=== PATIENT | female | born 1935 | race Caucasian/White ===

== ENCOUNTER 2019-03-10 13:09 | Inpatient (IN) ==
[2019-03-10] MEDS ORDERED: Ketorolac 30 MG/ML VIAL IVP ONE (13:21)
--- NOTE | 2019-03-10 13:26 | Emergency Department Note ---
Disposition Clinical Impression: Pubic ramus fracture Qualifiers: Encounter type: initial encounter Fracture type: closed Laterality: right Qualified Code(s): S32.591A - Other specified fracture of right pubis, initial encounter for closed fracture Disposition: Admitted As Inpatient Condition: Good Time of Disposition: 16:20 Lower Extremity Injury HPI - General Chief Complaint: ED Extremity Injury, Lower Stated Complaint: fall, right hip pain Time Seen by Provider: 03/10/19 13:10 Source: EMS Mode of arrival: EMS Limitations: no limitations Nursing Notes Reviewed: Yes Vital Signs Reviewed: Yes - History of Present Illness HPI Narrative: Patient presents to the ED via EMS complaining of right hip pain after a fall. States she was in town visiting her niece and was walking on uneven ground on a hillside in her yard going to her car when she slipped and fell. She went down on her right hip. She did not strike her head or lose consciousness. She did not have any immediate pain but when she tried to get up she experienced significant pain in her right hip and was unable to bear weight. Per EMS her pain was initially 10 out of 10. She reports 5 out of 10 pain currently in only the right hip area. No numbness, tingling or weakness in her leg. She has never injured this hip in the past. She denies any other pain or other injuries from the fall. She denies any antecedent lightheadedness, dizziness, palpitations or other symptoms prior to the fall. 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 - Related Data Home Medications Medication Instructions Recorded Confirmed Albuterol Neb [Proventil Neb] 2.5 mg IH PRN PRN 03/10/19 03/10/19 Atorvastatin [Lipitor] 20 mg PO HS 03/10/19 03/10/19 Azelastine 0.1% Nasal [place] 2 spray NS QPM 03/10/19 03/10/19 [Astelin] Budesonide/Formoterol 160/4.5 2 puff IH BIDR 03/10/19 03/10/19 [Symbicort 160/4.5] Cetirizine HCl [24Hour Allergy] 10 mg PO DAILY 03/10/19 03/10/19 Cholecalciferol (Vitamin D3) 1,000 unit PO DAILY 03/10/19 03/10/19 [Vitamin D] Colestipol HCl [Colestid] 1 gm PO BID 03/10/19 03/10/19 Fluticasone Propionate Nasal 50 mcg NS QAM 03/10/19 03/10/19 [Flonase] Furosemide [Lasix] 40 mg PO DAILY 03/10/19 03/10/19 HYDROcodone/Acet 5/325 mg [[place] 1 tab PO BID PRN 03/10/19 03/10/19 5-325 mg] Lansoprazole [Prevacid] 30 mg PO DAILY 03/10/19 03/10/19 Levothyroxine [Synthroid] 50 mcg PO DAILY 03/10/19 03/10/19 Montelukast Sodium [Singulair] 10 mg PO DAILY 03/10/19 03/10/19 Potassium Chloride [Klor-Con 10] 50 meq PO DAILY 03/10/19 03/10/19 Sertraline [Zoloft] 75 mg PO DAILY 03/10/19 03/10/19 Allergies Allergy/AdvReac Type Severity Reaction Status Date / Time No Known Allergies Allergy Verified 03/10/19 17:14 Constitutional: Denies: fever, chills, weakness, weight change Eyes: Denies: eye pain, eye discharge, vision change ENT ED: Denies: ear pain, throat pain, dental pain, hearing loss, epistaxis, congestion, dysphagia Cardiovascular: Denies: chest pain, palpitations, dyspnea on exertion, edema, syncope Respiratory: Denies: cough, dyspnea, wheezes, hemoptysis, stridor Gastrointestinal: Denies: abdominal pain, nausea, vomiting, diarrhea, constipation, hematemesis, melena, hematochezia Genitourinary: Denies: dysuria, frequency, hematuria, discharge Musculoskeletal: Denies: back pain, neck pain, arthralgia, myalgia Integumentary: Denies: rash, abrasion, lesions Neurological: Denies: headache, weakness, numbness, paresthesias, confusion, abnormal gait, vertigo Psychiatric: Denies: anxiety, depression, suicidal thoughts, homicidal thoughts, auditory hallucinations, visual hallucinations Endocrine: Denies: fatigue Hematological/Lymphatic: Denies: easy bleeding, easy bruising Allergic/Immunologic: Denies: facial swelling, urticaria Past Medical History - Past Medical History Medical history: Reports: asthma, cancer, GERD, hyperlipidemia, hypertension Psychiatric history: Reports: no psych history - Social History Smoking Status: Never smoker Smokeless Tobacco Status: No Alcohol use: Reports: none Drug use: Reports: none Physical Exam - General Limitations: no limitations General appearance: alert, in no apparent distress - Head Head exam: atraumatic, normocephalic, normal inspection - Eye Eye exam: Present: normal appearance, PERRL, EOMI - Neck Neck exam: Present: normal inspection, full ROM, trachea midline - Chest Chest inspection: Present: normal inspection, symmetric chest wall rise - Respiratory Respiratory exam: Present: normal lung sounds bilaterally - Cardiovascular Cardiovascular exam: Present: regular rate, normal rhythm, normal heart sounds - Abdominal Exam Abdominal exam: Present: soft, Non-Tender. Absent: tenderness, distention, guarding, rebound, rigidity - Extremities Exam Extremities exam: Present: normal inspection, full ROM. Absent: tenderness, pedal edema - Expanded Lower Extremity Exam Hip/Pelvis exam: Present: external rotation (chronic). Absent: full ROM (limited by pain), deformity, crepitus, dislocation Upper leg exam: Present: normal inspection, full ROM Knee exam: Present: normal inspection, full ROM Lower leg exam: Present: normal inspection, full ROM Ankle exam: Present: normal inspection, full ROM Foot/toe exam: Present: normal inspection, full ROM Neurovascular/Tendon exam: Present: normal capillary refill. Absent: pulse deficit, motor deficit, sensory deficit, tendon deficit - Back Exam Back exam: Present: normal inspection - Neurological Exam Neurological exam: Present: alert, oriented X3 - Psychiatric Psychiatric exam: Present: normal affect, normal mood - Skin Skin exam: Present: warm, dry, intact, normal color Course Course Narrative: Patient presents to the ED via EMS complaining of right hip pain after mechanical fall and her niece his yard. On arrival she is afebrile, hemod ynamically stable and nontoxic in appearance. She is reporting 5 out of 10 pain in the right hip it only occurs with movement. No pain at rest. No obvious deformities to the right lower extremity. We will give medication for pain and obtain imaging. - Reevaluation(s) Reevaluation #1: X-ray shows some lumbar spine degenerative changes but no acute abnormalities in the right hip. Patient remains pain-free at rest. She was able to get up to the side of the bed on her own but when she attempted to walk with her cane she was unable to bear weight on the right leg without extreme pain. Will obtain CT of the hip for further evaluation of potential injury that may not be obvious on plain film. She declined an offer of additional pain medication. Time: 14:32 Reevaluation #2: CT results show nondisplaced superior and inferior right pubic rami fracture as well as possibly a nondisplaced right alar fracture. Discussed results with patient and the fact that while these are painful fractures they do not usually require surgery but can cause difficulty with ambulation. Given the patient lives alone and does not have 24-hour assistance available at this time she was offered admission for pain control, assistance with ambulation, PT and OT evaluation and arrangements for home health assistance as needed. She is discussing the situation with her family at this time. Time: 15:38 Reevaluation #3: Patient is willing to stay for pain control, assistance with ambulation, therapy evaluation and arrangement of home health services as needed. We have paged the hospitalist on-call and are awaiting callback at this time. Time: 15:55 Additional Reevaluation(s): I spoke to the hospitalist on-call, Dr. Maradiaga, who has accepted the patient. Vital Signs Temperature 99.7 F H 03/10/19 13:12 Pulse Rate 71 03/10/19 13:12 Respiratory Rate 18 03/10/19 13:12 Blood Pressure 108/95 03/10/19 13:12 O2 Sat by Pulse Oximetry 95 03/10/19 13:12 Temperature 99.7 F H 03/10/19 13:12 Pulse Rate 65 03/10/19 16:59 Respiratory Rate 18 03/10/19 16:59 Blood Pressure 121/85 03/10/19 16:59 O2 Sat by Pulse Oximetry 98 03/10/19 16:59 Oxygen Delivery Oxygen Delivery Room Air Extremity Injury, Lower - Differential Diagnosis Likely: sprain/strain, fracture - Medical Records Medical records reviewed: Yes I reviewed the patient's medical records. - Radiology Data Radiology results reviewed: Yes I reviewed the patient's radiology results. ITS Impressions Hip X-Ray 03/10/19 13:21 IMPRESSION: No acute osseous abnormality. D/ / Lalito Anderson MD / Lalito Anderson MD Interpreting Provider: Lalito Anderson MD Hip CT 03/10/19 14:30 IMPRESSION: 1. Acute nondisplaced fractures of the right superior and inferior pubic rami. 2. Questionable fracture of the right sacral ala which is only partially included in the field of view. D/ / Lalito Anderson MD / Lalito Anderson MD Interpreting Provider: Lalito Anderson MD
[2019-03-10] MEDS ORDERED: traMADol 50 MG TABLET PO ONE (14:56)
[2019-03-10] MEDS ORDERED: *HR* HYDROcodone/Acet 5/325 mg TABLET PO PRN ×2 (16:27→17:47)
[2019-03-10] MEDS ORDERED: Acetaminophen 325 MG TABLET PO PRN ×2 (16:27→17:47)
[2019-03-10] MEDS ORDERED: *HR* OxyCODONE Immed Rel 5 MG TABLET PO PRN (16:27)
[2019-03-10] MEDS ORDERED: Naloxone 0.4 MG/ML INJ IVP PRN ×2 (16:27→17:47)
[2019-03-10] MEDS: Azelastine 0.1% Nasal Spray 30 ML BOTTLE NS SCH (18:39)
[2019-03-10] MEDS: *HR* OxyCODONE Immed Rel 5 MG TABLET PO PRN (20:42)
[2019-03-10] MEDS: COLESTIPOL 1 GM PO SCH (20:52)
[2019-03-10] MEDS: Albuterol 2.5 MG/3 ML NEBULIZER IH PRN (22:16)
[2019-03-10] MEDS: Budesonide/Formoterol 160/4.5 1 PUFF INH IH SCH (22:16)
[2019-03-11] MEDS: Melatonin 3 MG TABLET PO SCH ×2 (00:15→20:46)
[2019-03-11] MEDS: Levothyroxine 25 MCG TABLET PO SCH (06:17)
[2019-03-11] MEDS ORDERED: Loratadine 10 MG TABLET PO SCH (09:00)
[2019-03-11] MEDS: Cholecalciferol (D-3) 1,000 UNIT (25MCG) TABLET PO SCH (09:42)
[2019-03-11] MEDS: Furosemide 40 MG TABLET PO SCH (09:42)
[2019-03-11] MEDS: COLESTIPOL 1 GM PO SCH ×2 (09:43→20:46)
[2019-03-11] MEDS: Fluticasone Propionate Nasal 50 MCG/SPRAY BOTTLE NS SCH (09:47)
[2019-03-11] MEDS: Albuterol 2.5 MG/3 ML NEBULIZER IH PRN ×2 (10:19→22:37)
[2019-03-11] MEDS: Budesonide/Formoterol 160/4.5 1 PUFF INH IH SCH ×2 (10:19→22:31)
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
[2019-03-11 15:03] LABS: Basophils % 0.3 %; Eosinophils % 0.3 %; Hematocrit 33.7 % (35.3-44.9); Immature Granulocytes % 3.5 % (0-4); Lymphocytes # 0.6 K/mcL (0.6-4.6); Lymphocytes % 4.9 %; Mean Corpuscular HGB Conc 32.6 g/dL (31.6-35.5); Mean Corpuscular Hemoglobin 30.2 pg (28.0-33.3); Mean Corpuscular Volume 92.6 fL (83.0-100.0); Mean Platelet Volume 8.8 fL (9.4-12.4); Monocytes # 0.6 K/mcL (0.0-1.3); Monocytes % 5.2 %; Platelet Count 167 K/mcL (140-400); Red Blood Count 3.64 M/mcL (3.82-4.97); Red Cell Distribution Width 14.4 % (11.5-14.5); Segmented Neutrophils % 85.8 %; White Blood Count 11.6 K/mcL (4.3-11.1)
[2019-03-11 15:18] LABS: Alanine Aminotransferase 15 Units/L (7-52); Albumin 3.4 g/dL (3.5-5.7); Albumin/Globulin Ratio 1.3 (1.1-2.2); Alkaline Phosphatase 70 Units/L (34-104); Aspartate Amino Transferase 12 Units/L (13-39); BUN/Creatinine Ratio 23 (6-26); Bilirubin,Total 0.6 mg/dL (0.3-1.0); Blood Urea Nitrogen 23 mg/dL (8-23); Calcium 8.2 mg/dL (8.6-10.3); Carbon Dioxide 24 mEq/L (23-29); Chloride 106 mEq/L (98-107); Globulin 2.6 g/dL (2.4-3.5); Glucose 179 mg/dL (70-105); Osmolality,Calculated 292 (280-300); Potassium 4.2 mEq/L (3.5-5.1); Sodium 137 mEq/L (136-145); eGFR For African Americans > 60 (> 60); eGFR For Non-African Americans 52 (> 60)
[2019-03-11 15:34] LABS: Thyroid Stimulating Hormone 1.139 mcIU/mL (0.340-5.600)
[2019-03-11] MEDS: Azelastine 0.1% Nasal Spray 30 ML BOTTLE NS SCH (17:06)
[2019-03-11] MEDS: Acetaminophen 325 MG TABLET PO SCH (17:06)
[2019-03-12] MEDS: Acetaminophen 325 MG TABLET PO SCH ×5 (00:14→22:04)
[2019-03-12 05:38] LABS: Basophils % 0.4 %; Eosinophils # 0.1 K/mcL (0.0-0.6); Eosinophils % 0.6 %; Hematocrit 28.9 % (35.3-44.9); Hemoglobin 9.6 g/dL (11.5-15.4); Immature Granulocytes % 4.6 % (0-4); Lymphocytes # 0.8 K/mcL (0.6-4.6); Lymphocytes % 7.3 %; Mean Corpuscular HGB Conc 33.2 g/dL (31.6-35.5); Mean Corpuscular Hemoglobin 30.6 pg (28.0-33.3); Mean Platelet Volume 9.7 fL (9.4-12.4); Monocytes # 0.7 K/mcL (0.0-1.3); Neutrophils # 8.9 K/mcL (1.6-8.9); Platelet Count 151 K/mcL (140-400); Red Blood Count 3.14 M/mcL (3.82-4.97); Red Cell Distribution Width 14.4 % (11.5-14.5); Segmented Neutrophils % 81.1 %
[2019-03-12 05:59] LABS: BUN/Creatinine Ratio 23 (6-26); Blood Urea Nitrogen 21 mg/dL (8-23); Calcium 8.1 mg/dL (8.6-10.3); Carbon Dioxide 25 mEq/L (23-29); Chloride 105 mEq/L (98-107); Glucose 128 mg/dL (70-105); Osmolality,Calculated 289 (280-300); Potassium 4.3 mEq/L (3.5-5.1); Sodium 137 mEq/L (136-145); eGFR For African Americans > 60 (> 60); eGFR For Non-African Americans 58 (> 60)
[2019-03-12] MEDS: Levothyroxine 25 MCG TABLET PO SCH (06:02)
[2019-03-12] MEDS: *HR* Enoxaparin 40 MG/0.4 ML SYRINGE SQ SCH (06:03)
[2019-03-12] MEDS: Fluticasone Propionate Nasal 50 MCG/SPRAY BOTTLE NS SCH (08:36)
[2019-03-12] MEDS: Cholecalciferol (D-3) 1,000 UNIT (25MCG) TABLET PO SCH (08:36)
[2019-03-12] MEDS: Furosemide 40 MG TABLET PO SCH (08:37)
[2019-03-12] MEDS: COLESTIPOL 1 GM PO SCH ×2 (08:38→22:05)
[2019-03-12 09:01] LABS: % Iron Saturation 17 % (15-50); Iron 60 mcg/dL (50-170); Transferrin 246 mg/dL (203-362)
[2019-03-12] MEDS: Albuterol 2.5 MG/3 ML NEBULIZER IH PRN ×2 (09:12→21:42)
[2019-03-12] MEDS: Budesonide/Formoterol 160/4.5 1 PUFF INH IH SCH ×2 (09:12→21:42)
[2019-03-12 09:19] LABS: Ferritin 29 ng/mL (10-120)
[2019-03-12 09:24] LABS: Folate 13.6 ng/mL (3.0-16.0)
--- NOTE | 2019-03-12 11:58 | Internal Med Progress Note ---
Date of Encounter: 03/12/19 Time of Encounter: 11:45 - Assessment and plan (1) Pubic ramus fracture Current Visit: Yes Status: Acute Assessment and plan: March 12. Continue analgesics and PT/OT intervention. Continue BEVER[place] hose for DVT prophylaxis. Qualifiers: Encounter type: initial encounter Fracture type: closed Laterality: right Qualified Code(s): S32.591A - Other specified fracture of right pubis, initial encounter for closed fracture (2) Osteoporosis Current Visit: Yes Status: Chronic Assessment and plan: March 12. Continue vitamin D. Qualifiers: Osteoporosis type: unspecified Presence of current pathological fracture: without current pathological fracture Qualified Code(s): M81.0 - Age-related osteoporosis without current pathological fracture (3) Hypertension Current Visit: Yes Status: Chronic Assessment and plan: March 12. Blood pressure shows significant fluctuation. Continue Lasix. Qualifiers: Hypertension type: essential hypertension Qualified Code(s): I10 - Essential (primary) hypertension (4) Hypothyroidism Current Visit: Yes Status: Chronic Assessment and plan: March 12. TSH normal at 1.139. Continue present dose Synthroid. Qualifiers: Hypothyroidism type: unspecified Qualified Code(s): E03.9 - Hypothyroidism, unspecified (5) Anemia Current Visit: Yes Status: Acute Assessment and plan: March 12. Hemoglobin decreased to 9.6 today. Anemia testing shows iron 60, transferrin saturation 17%, transferrin 246, ferritin 29, B12 247, and folate 13.6. She will receive a B12 injection IM and start oral B12 supplement. Qualifiers: Anemia type: unspecified type Qualified Code(s): D64.9 - Anemia, unspecified (6) Anxiety Current Visit: Yes Status: Chronic Assessment and plan: March 12. Continue Zoloft. (7) Depression Current Visit: Yes Status: Chronic Assessment and plan: March 12. Continue Zoloft. Qualifiers: Depression Type: unspecified Qualified Code(s): F32.9 - Major depressive disorder, single episode, unspecified (8) Multiple falls Current Visit: Yes Status: Acute Assessment and plan: March 12. Continue PT/OT intervention. (9) Asthma Current Visit: Yes Status: Chronic Assessment and plan: March 12. Continue Symbicort, Singulair, and prn albuterol nebs. Qualifiers: Asthma severity: unspecified severity Asthma persistence: intermittent Asthma complication type: unspecified Qualified Code(s): J45.20 - Mild intermittent asthma, uncomplicated - Subjective Interval history: March 12. She has no new complaints. She denies significant pain. - Constitutional Vitals: Temp Pulse Resp BP Pulse Ox 98.6 F 68 18 149/78 98 03/12/19 06:55 03/12/19 06:55 03/12/19 09:13 03/12/19 06:55 03/12/19 09:13 Exam: She is resting comfortably in bed eating lunch. Her affect is bright and cheerful. I reviewed her medications and lab results. Internal Medicine: Result - Labs CBC & Chem 7: 03/12/19 05:10 03/12/19 05:10 Labs: Short CBC 03/11/19 03/12/19 Range/Units 14:54 05:10 WBC 11.6 H 11.0 (4.3-11.1) K/mcL Hgb 11.0 L 9.6 L (11.5-15.4) g/dL Hct 33.7 L 28.9 L (35.3-44.9) % Plt Count 167 151 (140-400) K/mcL Neutrophils # 10.0 H 8.9 (1.6-8.9) K/mcL BMP 03/11/19 03/12/19 14:54 05:10 Sodium 137 137 Potassium 4.2 4.3 Chloride 106 105 Carbon Dioxide 24 25 BUN 23 21 Creatinine 1.01 0.93 Glucose 179 H 128 H Calcium 8.2 L 8.1 L Liver Function 03/11/19 Range/Units 14:54 Total Bilirubin 0.6 (0.3-1.0) mg/dL AST 12 L (13-39) Units/L ALT 15 (7-52) Units/L Alkaline Phosphatase 70 (34-104) Units/L Albumin 3.4 L (3.5-5.7) g/dL - VTE Reasons for not Prescribing Prophylaxis: Treatment not Indicated - Low risk for VTE Consult Discharge Plan - Plan Referrals: Radha Machuca MD [Primary Care Provider] - 1 week
[2019-03-12] MEDS ORDERED: Cyanocobalamin (B-12) 1,000 MCG/ML VIAL IM ONE (12:01)
[2019-03-12] MEDS: Azelastine 0.1% Nasal Spray 30 ML BOTTLE NS SCH (17:11)
[2019-03-12] MEDS: Melatonin 3 MG TABLET PO SCH (22:04)
[2019-03-13] MEDS: *HR* Enoxaparin 40 MG/0.4 ML SYRINGE SQ SCH (06:36)
[2019-03-13] MEDS: Acetaminophen 325 MG TABLET PO SCH ×3 (06:36→17:46)
[2019-03-13] MEDS: Levothyroxine 25 MCG TABLET PO SCH (06:37)
[2019-03-13] MEDS: Furosemide 40 MG TABLET PO SCH (10:04)
[2019-03-13] MEDS: Cholecalciferol (D-3) 1,000 UNIT (25MCG) TABLET PO SCH (10:04)
[2019-03-13] MEDS: Fluticasone Propionate Nasal 50 MCG/SPRAY BOTTLE NS SCH (10:04)
[2019-03-13] MEDS: COLESTIPOL 1 GM PO SCH ×2 (10:05→20:59)
[2019-03-13] MEDS: Cyanocobalamin (B-12) 1,000 MCG TABLET PO SCH (10:05)
[2019-03-13] MEDS: Albuterol 2.5 MG/3 ML NEBULIZER IH PRN ×2 (10:31→22:11)
[2019-03-13] MEDS: Budesonide/Formoterol 160/4.5 1 PUFF INH IH SCH ×2 (10:31→22:11)
[2019-03-13] MEDS: *HR* OxyCODONE Immed Rel 5 MG TABLET PO PRN ×2 (11:54→21:59)
--- NOTE | 2019-03-13 17:42 | Internal Med Progress Note ---
Date of Encounter: 03/13/19 Time of Encounter: 17:30 - Assessment and plan (1) Pubic ramus fracture Current Visit: Yes Status: Acute Assessment and plan: March 12. Continue analgesics and PT/OT intervention. Continue BEVERLY hose for DVT prophylaxis. Qualifiers: Encounter type: initial encounter Fracture type: closed Laterality: right Qualified Code(s): S32.591A - Other specified fracture of right pubis, initial encounter for closed fracture (2) Osteoporosis Current Visit: Yes Status: Chronic Assessment and plan: March 12. Continue vitamin D. Qualifiers: Osteoporosis type: unspecified Presence of current pathological fracture: without current pathological fracture Qualified Code(s): M81.0 - Age-related osteoporosis without current pathological fracture (3) Hypertension Current Visit: Yes Status: Chronic Assessment and plan: March 12. Blood pressure shows significant fluctuation. Continue Lasix. Qualifiers: Hypertension type: essential hypertension Qualified Code(s): I10 - Essential (primary) hypertension (4) Hypothyroidism Current Visit: Yes Status: Chronic Assessment and plan: March 12. TSH normal at 1.139. Continue present dose Synthroid. Qualifiers: Hypothyroidism type: unspecified Qualified Code(s): E03.9 - Hypothyroidism, unspecified (5) Anemia Current Visit: Yes Status: Acute Assessment and plan: March 12. Hemoglobin decreased to 9.6 today. Anemia testing shows iron 60, transferrin saturation 17%, transferrin 246, ferritin 29, B12 247, and folate 13.6. She will receive a B12 injection IM and start oral B12 supplement. March 13. Recheck CBC in a.m. Continue oral B12 supplement. Qualifiers: Anemia type: unspecified type Qualified Code(s): D64.9 - Anemia, unspecified (6) Anxiety Current Visit: Yes Status: Chronic Assessment and plan: March 12. Continue Zoloft. (7) Depression Current Visit: Yes Status: Chronic Assessment and plan: March 12. Continue Zoloft. Qualifiers: Depression Type: unspecified Qualified Code(s): F32.9 - Major depressive disorder, single episode, unspecified (8) Multiple falls Current Visit: Yes Status: Acute Assessment and plan: March 12. Continue PT/OT intervention. (9) Asthma Current Visit: Yes Status: Chronic Assessment and plan: March 12. Continue Symbicort, Singulair, and prn albuterol nebs. Qualifiers: Asthma severity: unspecified severity Asthma persistence: intermittent Asthma complication type: unspecified Qualified Code(s): J45.20 - Mild intermittent asthma, uncomplicated - Subjective Interval history: March 12. She has no new complaints. She denies significant pain. March 13. She has no new complaints. - Constitutional Vitals: Temp Pulse Resp BP Pulse Ox 98.2 F 72 20 115/65 96 03/13/19 14:36 03/13/19 14:36 03/13/19 14:36 03/13/19 14:36 03/13/19 14:36 Exam: She is sitting in a chair at bedside eating supper. Her affect is bright and cheerful. I reviewed her medications and lab results. Internal Medicine: Result - Labs CBC & Chem 7: 03/12/19 05:10 03/12/19 05:10 - VTE Reasons for not Prescribing Prophylaxis: Treatment not Indicated - Low risk for VTE Consult Discharge Plan - Plan Referrals: Radha Machuca MD [Primary Care Provider] - 1 week
[2019-03-13] MEDS: Azelastine 0.1% Nasal Spray 30 ML BOTTLE NS SCH (17:46)
[2019-03-13] MEDS: Melatonin 3 MG TABLET PO SCH (20:59)
[2019-03-14] MEDS: Acetaminophen 325 MG TABLET PO SCH ×2 (00:31→05:54)
[2019-03-14] MEDS: *HR* Enoxaparin 40 MG/0.4 ML SYRINGE SQ SCH (05:54)
[2019-03-14] MEDS: Levothyroxine 25 MCG TABLET PO SCH (05:54)
[2019-03-14 06:48] VITALS: BP 134/70
[2019-03-14 07:05] LABS: Basophils # 0.1 K/mcL (0.0-0.2); Basophils % 0.5 %; Eosinophils # 0.1 K/mcL (0.0-0.6); Hematocrit 28.8 % (35.3-44.9); Hemoglobin 9.7 g/dL (11.5-15.4); Immature Granulocytes % 5.8 % (0-4); Lymphocytes # 0.9 K/mcL (0.6-4.6); Lymphocytes % 8.2 %; Mean Corpuscular HGB Conc 33.7 g/dL (31.6-35.5); Mean Corpuscular Hemoglobin 30.4 pg (28.0-33.3); Mean Corpuscular Volume 90.3 fL (83.0-100.0); Mean Platelet Volume 9.2 fL (9.4-12.4); Monocytes # 0.6 K/mcL (0.0-1.3); Monocytes % 5.3 %; Neutrophils # 8.6 K/mcL (1.6-8.9); Platelet Count 152 K/mcL (140-400); Red Blood Count 3.19 M/mcL (3.82-4.97); Red Cell Distribution Width 14.2 % (11.5-14.5); Segmented Neutrophils % 79.2 %; White Blood Count 10.8 K/mcL (4.3-11.1)
[2019-03-14 07:41] LABS: BUN/Creatinine Ratio 26 (6-26); Blood Urea Nitrogen 22 mg/dL (8-23); Calcium 8.4 mg/dL (8.6-10.3); Carbon Dioxide 24 mEq/L (23-29); Chloride 102 mEq/L (98-107); Glucose 128 mg/dL (70-105); Osmolality,Calculated 281 (280-300); Potassium 4.1 mEq/L (3.5-5.1); Sodium 133 mEq/L (136-145); eGFR For African Americans > 60 (> 60); eGFR For Non-African Americans > 60 (> 60)
[2019-03-14 08:19] LABS: Platelet Estimate Normal (Normal)
[2019-03-14] MEDS ORDERED: Potassium Chloride Elixir 20 MEQ/15 ML UDC PO SCH (09:00)
[2019-03-14] MEDS: COLESTIPOL 1 GM PO SCH (09:14)
[2019-03-14] MEDS: Cholecalciferol (D-3) 1,000 UNIT (25MCG) TABLET PO SCH (09:40)
[2019-03-14] MEDS: Cyanocobalamin (B-12) 1,000 MCG TABLET PO SCH (09:40)
[2019-03-14] MEDS: Furosemide 40 MG TABLET PO SCH (09:40)
[2019-03-14] MEDS: Fluticasone Propionate Nasal 50 MCG/SPRAY BOTTLE NS SCH (09:41)
--- NOTE | 2019-03-14 10:12 | Discharge Summary ---
Date of Encounter: 03/14/19 Time of Encounter: 10:00 - Discharge Diagnosis (1) Pubic ramus fracture Priority: Primary Status: Acute Qualifiers: Encounter type: initial encounter Fracture type: closed Laterality: right Qualified Code(s): S32.591A - Other specified fracture of right pubis, initial encounter for closed fracture (2) Osteoporosis Priority: Secondary Status: Chronic Qualifiers: Osteoporosis type: unspecified Presence of current pathological fracture: without current pathological fracture Qualified Code(s): M81.0 - Age-related osteoporosis without current pathological fracture (3) Hypertension Priority: Secondary Status: Chronic Qualifiers: Hypertension type: essential hypertension Qualified Code(s): I10 - Essential (primary) hypertension (4) Hypothyroidism Priority: Secondary Status: Chronic Qualifiers: Hypothyroidism type: unspecified Qualified Code(s): E03.9 - Hypothyroidism, unspecified (5) Anemia Priority: Secondary Status: Acute Qualifiers: Anemia type: unspecified type Qualified Code(s): D64.9 - Anemia, unspecified (6) Anxiety Priority: Secondary Status: Chronic (7) Depression Priority: Secondary Status: Chronic Qualifiers: Depression Type: unspecified Qualified Code(s): F32.9 - Major depressive disorder, single episode, unspecified (8) Multiple falls Priority: Secondary Status: Acute (9) Asthma Priority: Secondary Status: Chronic Qualifiers: Asthma severity: unspecified severity Asthma persistence: intermittent Asthma complication type: unspecified Qualified Code(s): J45.20 - Mild intermittent asthma, uncomplicated Hospital course: Ms. Vance is a 83 year old female who had a fall while standing in her niece's yard. She denies vertigo syncope or near syncope. She states she lost her balance and was not able to catch herself. EMS was called and she was brought to emergency room. Pelvic CT showed acute nondisplaced fractures of the right superior and inferior pubic rami with questionable fracture of the right sacral ala. She was admitted to [facility] for ongoing care needs. Initial orders were written by the emergency room physician. I saw her on and performed a history and physical. She was given scheduled and prn analgesics. PT and OT evaluations with ongoing intervention were done. She made satisfactory progress. It was felt she would benefit from ongoing therapy in swing bed. Vitamin D level returned minimally low at 28. She will continue present dose vitamin D supplement. Anemia testing showed iron 60, transferrin saturation 17%, transferrin 246, ferritin 29, B12 247, and folate 13.6. She was given a B12 injection and will start oral B12 supplement. TSH was normal at 1.139. IV fluids were given initially. Creatinine decreased to 0.84 with estimated GFR> 60 by day of discharge. Hemoglobin was stable at 9.7 on day of discharge. WBC normalized with decrease in left shift. Hemoglobin A1c was ordered to further evaluate mild fasting hyperglycemia. Result is pending at time of discharge to swing bed. On March 14 she was stable for discharge to swing bed for ongoing care needs. - Time Spent with Patient Total time spent providing and/or coordinating discharge services: - Discharge Medications Prescriptions: New Acetaminophen [Tylenol] 650 mg PO Q6HR tablet Albuterol Neb [Proventil Neb] 2.5 mg IH Q4H PRN inhsol PRN Reason: Shortness Of Breath Cyanocobalamin (B-12) [Vitamin B12] 1,000 mcg PO DAILY tablet Enoxaparin [Lovenox] 40 mg SQ 0600 syringe Melatonin 6 mg PO HS tablet Continued Albuterol Neb [Proventil Neb] 2.5 mg IH PRN PRN PRN Reason: Shortness Of Breath Atorvastatin [Lipitor] 20 mg PO HS Budesonide/Formoterol 160/4.5 [Symbicort 160/4.5] 2 puff IH BIDR Cholecalciferol (Vitamin D3) [Vitamin D3] 1,000 unit PO DAILY Colestipol HCl [Colestid] 1 gm PO BID Furosemide [Lasix] 40 mg PO DAILY HYDROcodone/Acet 5/325 mg [[place] 5-325 mg] 1 tab PO BID PRN PRN Reason: Pain Lansoprazole [Prevacid] 30 mg PO DAILY Levothyroxine [Synthroid] 50 mcg PO DAILY Montelukast Sodium [Singulair] 10 mg PO DAILY Potassium Chloride [Klor-Con 10] 50 meq PO DAILY Sertraline [Zoloft] 75 mg PO DAILY Fluticasone Propionate Nasal [Flonase] 50 mcg NS QAM Azelastine 0.1% Nasal [place] [Astelin] 2 spray NS QPM Discontinued Cetirizine HCl [24Hour Allergy] 10 mg PO DAILY Home Medications: Albuterol Neb [Proventil Neb] 2.5 mg IH PRN PRN 03/10/19 [History] Atorvastatin [Lipitor] 20 mg PO HS 03/10/19 [History] Azelastine 0.1% Nasal [place] [Astelin] 2 spray NS QPM 03/10/19 [History] Budesonide/Formoterol 160/4.5 [Symbicort 160/4.5] 2 puff IH BIDR 03/10/19 [History] Cholecalciferol (Vitamin D3) [Vitamin D3] 1,000 unit PO DAILY 03/10/19 [History] Colestipol HCl [Colestid] 1 gm PO BID 03/10/19 [History] Fluticasone Propionate Nasal [Flonase] 50 mcg NS QAM 03/10/19 [History] Furosemide [Lasix] 40 mg PO DAILY 03/10/19 [History] HYDROcodone/Acet 5/325 mg [[place] 5-325 mg] 1 tab PO BID PRN 03/10/19 [History] Lansoprazole [Prevacid] 30 mg PO DAILY 03/10/19 [History] Levothyroxine [Synthroid] 50 mcg PO DAILY 03/10/19 [History] Montelukast Sodium [Singulair] 10 mg PO DAILY 03/10/19 [History] Potassium Chloride [Klor-Con 10] 50 meq PO DAILY 03/10/19 [History] Sertraline [Zoloft] 75 mg PO DAILY 03/10/19 [History] Acetaminophen [Tylenol] 650 mg PO Q6HR tablet 03/14/19 [Rx] Albuterol Neb [Proventil Neb] 2.5 mg IH Q4H PRN inhsol 03/14/19 [Rx] Cyanocobalamin (B-12) [Vitamin B12] 1,000 mcg PO DAILY tablet 03/14/19 [Rx] Enoxaparin [Lovenox] 40 mg SQ 0600 syringe 03/14/19 [Rx] Melatonin 6 mg PO HS tablet 03/14/19 [Rx] Allergies/Adverse Reactions: Allergy/AdvReac Type Severity Reaction Status Date / Time metoclopramide [From Reglan] Allergy Hives Verified 03/10/19 17:25 Penicillins [PCN] Allergy Hives Verified 03/10/19 17:25 Sulfa (Sulfonamide Allergy Hives Verified 03/10/19 17:26 Antibiotics) codeine AdvReac See Verified 03/10/19 17:25 Comments Date of admission: 03/11/19 15:19 Primary care physician: Radha Machuca MD Consults: 03/10/19 18:22 Consult to Metal Grinder [CONS] Routine Reason for SW Consult: Pt would like home health when discharged 03/11/19 10:42 Consult to Occupational Therapy [CONS] Routine Comment: Evaluate, develop and implement POC Reason for Consult: pelvic fx Does patient have active BEDREST order?: No Is patient medically & hemodynamically stable?: Yes Patient assessed for mobility or mobilized this visit?: Yes Consult to Physical Therapy [CONS] Routine Comment: Evaluate, develop and implement POC Reason for Consult: pelvic fx Does patient have active BEDREST order?: No Is patient medically & hemodynamically stable?: Yes Patient assessed for mobility or mobilized this visit?: Yes - Constitutional Vitals: Temp Pulse Resp BP Pulse Ox 98.5 F 74 19 134/70 99 03/14/19 06:44 03/14/19 06:44 03/14/19 06:44 03/14/19 06:44 03/14/19 06:44 - Patient Status Disposition: Transfer Hospital Swing Bed Condition: Good - Discharge Instructions - Diet and Activity Activity: as per physical therapy Diet: regular diet - VTE Reasons for not Prescribing Prophylaxis: Treatment not Indicated - Low risk for VTE
== END 2019-03-14 10:55 | disposition other institution (70) | DRG 536 ==
LOC: EMEROOPIK 13:09 → INPPIK 13:09
PROVIDERS: ADMIT Internal Medicine; ATTEND Internal Medicine

== ENCOUNTER 2019-03-14 11:00 | Inpatient (IN) ==
[2019-03-14] MEDS ORDERED: Albuterol 2.5 MG/3 ML NEBULIZER IH PRN ×2 (11:05)
[2019-03-14] MEDS: Budesonide/Formoterol 160/4.5 1 PUFF INH IH SCH ×2 (13:30→21:25)
[2019-03-14] MEDS: Albuterol 2.5 MG/3 ML NEBULIZER IH PRN ×2 (13:53→21:25)
[2019-03-14] MEDS: *HR* HYDROcodone/Acet 5/325 mg TABLET PO PRN (14:19)
[2019-03-14 17:16] LABS: Estimated Average Glucose 134 mg/dl
[2019-03-14] MEDS: Acetaminophen 325 MG TABLET PO SCH ×2 (17:59→23:31)
[2019-03-14] MEDS: Azelastine 0.1% Nasal Spray 30 ML BOTTLE NS SCH (17:59)
[2019-03-14] MEDS: Colestipol Hcl [Colestid] 1 GM PO SCH (21:34)
[2019-03-14] MEDS: Melatonin 3 MG TABLET PO SCH (21:35)
[2019-03-15] MEDS: *HR* Enoxaparin 40 MG/0.4 ML SYRINGE SQ SCH (06:35)
[2019-03-15] MEDS: Acetaminophen 325 MG TABLET PO SCH ×3 (06:35→17:44)
[2019-03-15] MEDS: Levothyroxine 25 MCG TABLET PO SCH (06:35)
[2019-03-15] MEDS: Fluticasone Propionate Nasal 50 MCG/SPRAY BOTTLE NS SCH (09:51)
[2019-03-15] MEDS: Potassium Chloride Elixir 20 MEQ/15 ML UDC PO SCH (09:51)
[2019-03-15] MEDS: Colestipol Hcl [Colestid] 1 GM PO SCH ×2 (09:53→21:22)
[2019-03-15] MEDS: Furosemide 40 MG TABLET PO SCH (09:53)
[2019-03-15] MEDS: Cyanocobalamin (B-12) 1,000 MCG TABLET PO SCH (09:53)
[2019-03-15] MEDS: Cholecalciferol (D-3) 1,000 UNIT (25MCG) TABLET PO SCH (09:53)
[2019-03-15] MEDS: Albuterol 2.5 MG/3 ML NEBULIZER IH PRN ×2 (11:17→21:54)
[2019-03-15] MEDS: Budesonide/Formoterol 160/4.5 1 PUFF INH IH SCH ×2 (11:18→21:54)
[2019-03-15] MEDS: *HR* HYDROcodone/Acet 5/325 mg TABLET PO PRN (13:08)
[2019-03-15] MEDS: Azelastine 0.1% Nasal Spray 30 ML BOTTLE NS SCH (17:43)
[2019-03-15] MEDS: Melatonin 3 MG TABLET PO SCH (21:21)
[2019-03-16] MEDS: Acetaminophen 325 MG TABLET PO SCH ×4 (00:59→17:25)
[2019-03-16] MEDS: *HR* Enoxaparin 40 MG/0.4 ML SYRINGE SQ SCH (06:53)
[2019-03-16] MEDS: Levothyroxine 25 MCG TABLET PO SCH (06:53)
[2019-03-16] MEDS: Potassium Chloride Elixir 20 MEQ/15 ML UDC PO SCH (09:46)
[2019-03-16] MEDS: Fluticasone Propionate Nasal 50 MCG/SPRAY BOTTLE NS SCH (09:47)
[2019-03-16] MEDS: Cholecalciferol (D-3) 1,000 UNIT (25MCG) TABLET PO SCH (09:47)
[2019-03-16] MEDS: *HR* HYDROcodone/Acet 5/325 mg TABLET PO PRN ×2 (09:47→21:26)
[2019-03-16] MEDS: Cyanocobalamin (B-12) 1,000 MCG TABLET PO SCH (09:48)
[2019-03-16] MEDS: Colestipol Hcl [Colestid] 1 GM PO SCH ×2 (09:49→21:35)
[2019-03-16] MEDS: Furosemide 40 MG TABLET PO SCH (09:49)
[2019-03-16] MEDS: Albuterol 2.5 MG/3 ML NEBULIZER IH PRN ×2 (09:53→22:20)
[2019-03-16] MEDS: Budesonide/Formoterol 160/4.5 1 PUFF INH IH SCH ×2 (09:53→22:15)
[2019-03-16] MEDS: Azelastine 0.1% Nasal Spray 30 ML BOTTLE NS SCH (17:24)
--- NOTE | 2019-03-16 17:56 | Internal Med Progress Note ---
Date of Encounter: 03/16/19 Time of Encounter: 17:48 - Assessment and plan (1) Pubic ramus fracture Current Visit: No Status: Acute Assessment and plan: March 16. Continue scheduled and prn analgesics with PT/OT. Qualifiers: Encounter type: initial encounter Fracture type: closed Laterality: right Qualified Code(s): S32.591A - Other specified fracture of right pubis, initial encounter for closed fracture (2) Hypertension Current Visit: No Status: Chronic Assessment and plan: March 16. Continue Lasix. Qualifiers: Hypertension type: essential hypertension Qualified Code(s): I10 - Essential (primary) hypertension (3) Hypothyroidism Current Visit: No Status: Chronic Assessment and plan: March 16. TSH was normal at 1.139. Continue present dose Synthroid. Qualifiers: Hypothyroidism type: unspecified Qualified Code(s): E03.9 - Hypothyroidism, unspecified (4) Anemia Current Visit: No Status: Acute Assessment and plan: March 16. Anemia testing showed iron 60, transferrin saturation 17%, transferrin 246, ferritin 29, B12 247, and folate 13.6. She received a B12 injection IM and started oral B12 supplement. Qualifiers: Anemia type: unspecified type Qualified Code(s): D64.9 - Anemia, unspecified (5) Prediabetes Current Visit: Yes Status: Acute Assessment and plan: March 16. Hemoglobin A1c was 6.3%. - Subjective Interval history: March 16. She was hospitalized in acute-care March 10 after presenting with a fall resulting in right superior and inferior pubic ramus fractures. She was given scheduled and prn analgesics. PT/OT evaluation with ongoing intervention was done. She was discharged to swing bed for ongoing therapy prior to return to independent living. She has no new complaints today. - Constitutional Vitals: Temp Pulse Resp BP Pulse Ox 98.3 F 79 18 149/73 99 03/16/19 06:56 03/16/19 06:56 03/16/19 09:56 03/16/19 06:56 03/16/19 09:56 Exam: She is sitting in chair at bedside resting comfortably. Her affect is bright and cheerful. I reviewed her medications and lab results. Consult Discharge Plan - Plan Referrals: Radha Machuca MD [Primary Care Provider] - 1 week
[2019-03-16] MEDS: Melatonin 3 MG TABLET PO SCH (21:26)
[2019-03-17] MEDS: Acetaminophen 325 MG TABLET PO SCH ×5 (00:59→23:54)
[2019-03-17] MEDS: *HR* Enoxaparin 40 MG/0.4 ML SYRINGE SQ SCH (06:39)
[2019-03-17] MEDS: Levothyroxine 25 MCG TABLET PO SCH (06:39)
[2019-03-17] MEDS: *HR* HYDROcodone/Acet 5/325 mg TABLET PO PRN ×2 (06:41→20:20)
[2019-03-17] MEDS: Fluticasone Propionate Nasal 50 MCG/SPRAY BOTTLE NS SCH (08:20)
[2019-03-17] MEDS: Potassium Chloride Elixir 20 MEQ/15 ML UDC PO SCH (08:21)
[2019-03-17] MEDS: Furosemide 40 MG TABLET PO SCH (08:22)
[2019-03-17] MEDS: Cyanocobalamin (B-12) 1,000 MCG TABLET PO SCH (08:22)
[2019-03-17] MEDS: Cholecalciferol (D-3) 1,000 UNIT (25MCG) TABLET PO SCH (08:22)
[2019-03-17] MEDS: Colestipol Hcl [Colestid] 1 GM PO SCH ×2 (08:23→20:34)
[2019-03-17] MEDS: Albuterol 2.5 MG/3 ML NEBULIZER IH PRN ×2 (09:11→22:02)
[2019-03-17] MEDS: Budesonide/Formoterol 160/4.5 1 PUFF INH IH SCH ×2 (09:11→22:02)
[2019-03-17] MEDS: Azelastine 0.1% Nasal Spray 30 ML BOTTLE NS SCH (17:47)
[2019-03-17] MEDS: Melatonin 3 MG TABLET PO SCH (20:41)
[2019-03-18] MEDS: *HR* HYDROcodone/Acet 5/325 mg TABLET PO PRN ×3 (04:17→21:35)
[2019-03-18] MEDS: Levothyroxine 25 MCG TABLET PO SCH (05:40)
[2019-03-18] MEDS: Acetaminophen 325 MG TABLET PO SCH ×3 (05:40→17:32)
[2019-03-18] MEDS: *HR* Enoxaparin 40 MG/0.4 ML SYRINGE SQ SCH (05:40)
[2019-03-18] MEDS: Potassium Chloride Elixir 20 MEQ/15 ML UDC PO SCH (08:52)
[2019-03-18] MEDS: Cyanocobalamin (B-12) 1,000 MCG TABLET PO SCH (08:52)
[2019-03-18] MEDS: Cholecalciferol (D-3) 1,000 UNIT (25MCG) TABLET PO SCH (08:52)
[2019-03-18] MEDS: Furosemide 40 MG TABLET PO SCH (08:52)
[2019-03-18] MEDS: Colestipol Hcl [Colestid] 1 GM PO SCH ×2 (08:55→21:35)
[2019-03-18] MEDS: Fluticasone Propionate Nasal 50 MCG/SPRAY BOTTLE NS SCH (08:55)
[2019-03-18] MEDS: Budesonide/Formoterol 160/4.5 1 PUFF INH IH SCH ×2 (10:37→21:50)
[2019-03-18] MEDS: Albuterol 2.5 MG/3 ML NEBULIZER IH PRN ×2 (10:38→21:50)
--- NOTE | 2019-03-18 16:28 | Internal Med Progress Note ---
Date of Encounter: 03/18/19 Time of Encounter: 16:15 - Assessment and plan (1) Pubic ramus fracture Current Visit: No Status: Acute Assessment and plan: March 16. Continue scheduled and prn analgesics with PT/OT. March 18. CT scan will be ordered to further evaluate worsening pain Qualifiers: Encounter type: initial encounter Fracture type: closed Laterality: right Qualified Code(s): S32.591A - Other specified fracture of right pubis, initial encounter for closed fracture (2) Hypertension Current Visit: No Status: Chronic Assessment and plan: March 16. Continue Lasix. March 18. Change from Lasix to Bumex to lessen edema. Qualifiers: Hypertension type: essential hypertension Qualified Code(s): I10 - Essential (primary) hypertension (3) Hypothyroidism Current Visit: No Status: Chronic Assessment and plan: March 16. TSH was normal at 1.139. Continue present dose Synthroid. Qualifiers: Hypothyroidism type: unspecified Qualified Code(s): E03.9 - Hypothyroidism, unspecified (4) Anemia Current Visit: No Status: Acute Assessment and plan: March 16. Anemia testing showed iron 60, transferrin saturation 17%, transferrin 246, ferritin 29, B12 247, and folate 13.6. She received a B12 injection IM and started oral B12 supplement. March 18. Recheck CBC today. Qualifiers: Anemia type: unspecified type Qualified Code(s): D64.9 - Anemia, unspecified (5) Prediabetes Current Visit: Yes Status: Acute Assessment and plan: March 16. Hemoglobin A1c was 6.3%. (6) Edema Current Visit: Yes Status: Acute Assessment and plan: March 18. BN peptide will be checked. Change from Lasix to Bumex. Qualifiers: Edema type: unspecified Qualified Code(s): R60.9 - Edema, unspecified - Subjective Interval history: March 16. She was hospitalized in acute-care March 10- after presenting with a fall resulting in right superior and inferior pubic ramus fractures. She was given scheduled and prn analgesics. PT/OT evaluation with ongoing interve ntion was done. She was discharged to swing bed for ongoing therapy prior to return to independent living. She has no new complaints today. March 18. She reports increased pain in her right hip/pelvic area. She has no pain in her left hip. She has also noticed worsening edema in her lower legs. She denies dyspnea. - Constitutional Vitals: Temp Pulse Resp BP Pulse Ox 98.4 F 71 16 144/81 97 03/18/19 07:14 03/18/19 07:14 03/18/19 10:38 03/18/19 07:14 03/18/19 10:38 Exam: She is resting comfortably on the side of the bed. She has no pain on internal or external rotation of the right hip. She has 1-2+ edema of the lower legs bilaterally. Lungs show no wheezes or crackles. Heart is regular without murmurs gallops or ectopics. I reviewed her medications and lab results. Internal Medicine: Result - Labs Labs: Short CBC 03/13/19 03/13/19 Range/Units 22:00 22:00 Est Mean Plasma Glucose 134 mg/dl Hemoglobin A1c 6.3 H ( - 5.6) % B-Natriuretic Peptide 156 H (Less than 100) pg/mL Consult Discharge Plan - Plan Referrals: Radha Machuca MD [Primary Care Provider] - 1 week
[2019-03-18 16:46] LABS: Basophils # 0.1 K/mcL (0.0-0.2); Basophils % 0.4 %; Eosinophils # 0.1 K/mcL (0.0-0.6); Eosinophils % 0.8 %; Hematocrit 32.5 % (35.3-44.9); Hemoglobin 10.6 g/dL (11.5-15.4); Immature Granulocytes % 4.9 % (0-4); Lymphocytes # 1.1 K/mcL (0.6-4.6); Lymphocytes % 9.1 %; Mean Corpuscular HGB Conc 32.6 g/dL (31.6-35.5); Mean Corpuscular Hemoglobin 30.6 pg (28.0-33.3); Mean Corpuscular Volume 93.9 fL (83.0-100.0); Mean Platelet Volume 9.1 fL (9.4-12.4); Monocytes # 0.6 K/mcL (0.0-1.3); Monocytes % 4.9 %; Neutrophils # 9.9 K/mcL (1.6-8.9); Platelet Count 187 K/mcL (140-400); Red Blood Count 3.46 M/mcL (3.82-4.97); Segmented Neutrophils % 79.9 %; White Blood Count 12.4 K/mcL (4.3-11.1)
[2019-03-18 16:55] LABS: Calcium 9.1 mg/dL (8.6-10.3); Potassium 4.9 mEq/L (3.5-5.1)
[2019-03-18] MEDS: Azelastine 0.1% Nasal Spray 30 ML BOTTLE NS SCH (17:31)
[2019-03-18] MEDS: Melatonin 3 MG TABLET PO SCH (21:34)
[2019-03-19] MEDS: Acetaminophen 325 MG TABLET PO SCH ×4 (01:31→18:28)
[2019-03-19] MEDS: *HR* Enoxaparin 40 MG/0.4 ML SYRINGE SQ SCH (05:44)
[2019-03-19] MEDS: Levothyroxine 25 MCG TABLET PO SCH (05:44)
[2019-03-19] MEDS: Potassium Chloride Elixir 20 MEQ/15 ML UDC PO SCH (08:32)
[2019-03-19] MEDS: Fluticasone Propionate Nasal 50 MCG/SPRAY BOTTLE NS SCH (08:32)
[2019-03-19] MEDS: Cyanocobalamin (B-12) 1,000 MCG TABLET PO SCH (08:33)
[2019-03-19] MEDS: Bumetanide 1 MG TABLET PO SCH (08:33)
[2019-03-19] MEDS: Cholecalciferol (D-3) 1,000 UNIT (25MCG) TABLET PO SCH (08:33)
[2019-03-19] MEDS: *HR* HYDROcodone/Acet 5/325 mg TABLET PO PRN ×2 (08:33→18:29)
[2019-03-19] MEDS: Colestipol Hcl [Colestid] 1 GM PO SCH ×2 (08:47→21:22)
[2019-03-19] MEDS: Albuterol 2.5 MG/3 ML NEBULIZER IH PRN ×2 (10:15→21:22)
[2019-03-19] MEDS: Budesonide/Formoterol 160/4.5 1 PUFF INH IH SCH ×2 (10:15→21:22)
[2019-03-19] MEDS: Azelastine 0.1% Nasal Spray 30 ML BOTTLE NS SCH (18:29)
[2019-03-19] MEDS: Melatonin 3 MG TABLET PO SCH (21:29)
[2019-03-20] MEDS: Acetaminophen 325 MG TABLET PO SCH ×4 (00:51→17:25)
[2019-03-20] MEDS: *HR* Enoxaparin 40 MG/0.4 ML SYRINGE SQ SCH (06:02)
[2019-03-20] MEDS: Levothyroxine 25 MCG TABLET PO SCH (06:02)
[2019-03-20] MEDS: Cyanocobalamin (B-12) 1,000 MCG TABLET PO SCH (08:26)
[2019-03-20] MEDS: Cholecalciferol (D-3) 1,000 UNIT (25MCG) TABLET PO SCH (08:26)
[2019-03-20] MEDS: Colestipol Hcl [Colestid] 1 GM PO SCH ×2 (08:27→21:38)
[2019-03-20] MEDS: Potassium Chloride Elixir 20 MEQ/15 ML UDC PO SCH (08:27)
[2019-03-20] MEDS: Bumetanide 1 MG TABLET PO SCH (08:27)
[2019-03-20] MEDS: Fluticasone Propionate Nasal 50 MCG/SPRAY BOTTLE NS SCH (08:30)
[2019-03-20] MEDS: *HR* HYDROcodone/Acet 5/325 mg TABLET PO PRN ×2 (08:34→22:56)
[2019-03-20] MEDS: Albuterol 2.5 MG/3 ML NEBULIZER IH PRN ×2 (10:35→22:23)
[2019-03-20] MEDS: Budesonide/Formoterol 160/4.5 1 PUFF INH IH SCH ×2 (10:35→22:23)
[2019-03-20] MEDS: MOM Conc 10 ML UD.LIQ PO SCH (11:14)
--- NOTE | 2019-03-20 16:57 | Internal Med Progress Note ---
Date of Encounter: 03/20/19 Time of Encounter: 16:50 - Assessment and plan (1) Pubic ramus fracture Current Visit: No Status: Acute Assessment and plan: March 16. Continue scheduled and prn analgesics with PT/OT. March 18. CT scan will be ordered to further evaluate worsening pain March 20. Continue PT/OT and present analgesics. Qualifiers: Encounter type: initial encounter Fracture type: closed Laterality: right Qualified Code(s): S32.591A - Other specified fracture of right pubis, initial encounter for closed fracture (2) Hypertension Current Visit: No Status: Chronic Assessment and plan: March 16. Continue Lasix. March 18. Change from Lasix to Bumex to lessen edema. Qualifiers: Hypertension type: essential hypertension Qualified Code(s): I10 - Essential (primary) hypertension (3) Hypothyroidism Current Visit: No Status: Chronic Assessment and plan: March 16. TSH was normal at 1.139. Continue present dose Synthroid. Qualifiers: Hypothyroidism type: unspecified Qualified Code(s): E03.9 - Hypothyroidism, unspecified (4) Anemia Current Visit: No Status: Acute Assessment and plan: March 16. Anemia testing showed iron 60, transferrin saturation 17%, transferrin 246, ferritin 29, B12 247, and folate 13.6. She received a B12 injection IM and started oral B12 supplement. March 18. Recheck CBC today. March 20. Hemoglobin improved to 10.6 on March 18. Recheck labs in a.m. Qualifiers: Anemia type: unspecified type Qualified Code(s): D64.9 - Anemia, unspecified (5) Prediabetes Current Visit: Yes Status: Acute Assessment and plan: March 16. Hemoglobin A1c was 6.3%. (6) Edema Current Visit: Yes Status: Acute Assessment and plan: March 18. BN peptide will be checked. Change from Lasix to Bumex. March 20. Recheck labs in a.m. Continue Bumex Qualifiers: Edema type: unspecified Qualified Code(s): R60.9 - Edema, unspecified - Subjective Interval history: March 16. She was hospitalized in acute-care March 10- after presenting with a fall resulting in right superior and inferior pubic ramus fractures. She was given scheduled and prn analgesics. PT/OT evaluation with ongoing intervention was done. She was discharged to swing bed for ongoing therapy prior to return to independent living. She has no new complaints today. March 18. She reports increased pain in her right hip/pelvic area. She has no pain in her left hip. She has also noticed worsening edema in her lower legs. She denies dyspnea. March 20. She has no new complaints. She states the pain has not worsened and thinks it may be slightly lessened. - Constitutional Vitals: Temp Pulse Resp BP Pulse Ox 98.7 F 73 18 131/58 98 03/20/19 06:55 03/20/19 06:55 03/20/19 10:35 03/20/19 06:55 03/20/19 10:35 Exam: She is sitting on the side of bed resting comfortably. Her affect is bright and cheerful. I reviewed her medications and lab results. I discussed the CT report of March 18 showing mild increased displacement of the inferior pubic ramus fracture and confirmed nondisplaced right sacral ala fracture. Internal Medicine: Result - Labs CBC & Chem 7: 03/18/19 16:32 03/18/19 16:32 Consult Discharge Plan - Plan Referrals: Radha Machuca MD [Primary Care Provider] - 1 week
[2019-03-20] MEDS: Azelastine 0.1% Nasal Spray 30 ML BOTTLE NS SCH (17:25)
[2019-03-20] MEDS: Melatonin 3 MG TABLET PO SCH (21:38)
[2019-03-21] MEDS: Acetaminophen 325 MG TABLET PO SCH ×4 (00:44→17:14)
[2019-03-21] MEDS: *HR* Enoxaparin 40 MG/0.4 ML SYRINGE SQ SCH (05:30)
[2019-03-21] MEDS: Levothyroxine 25 MCG TABLET PO SCH (05:30)
[2019-03-21 05:51] LABS: Basophils # 0.1 K/mcL (0.0-0.2); Basophils % 0.6 %; Eosinophils # 0.1 K/mcL (0.0-0.6); Eosinophils % 1.3 %; Hematocrit 30.5 % (35.3-44.9); Immature Granulocytes % 2.9 % (0-4); Lymphocytes # 1.3 K/mcL (0.6-4.6); Lymphocytes % 12.5 %; Mean Corpuscular HGB Conc 32.8 g/dL (31.6-35.5); Mean Corpuscular Hemoglobin 30.5 pg (28.0-33.3); Mean Platelet Volume 9.4 fL (9.4-12.4); Monocytes # 0.5 K/mcL (0.0-1.3); Monocytes % 4.7 %; Neutrophils # 8.1 K/mcL (1.6-8.9); Platelet Count 181 K/mcL (140-400); Red Blood Count 3.28 M/mcL (3.82-4.97); White Blood Count 10.4 K/mcL (4.3-11.1)
[2019-03-21 06:20] LABS: BUN/Creatinine Ratio 37 (6-26); Blood Urea Nitrogen 33 mg/dL (8-23); Calcium 8.6 mg/dL (8.6-10.3); Carbon Dioxide 28 mEq/L (23-29); Chloride 105 mEq/L (98-107); Glucose 132 mg/dL (70-105); Osmolality,Calculated 297 (280-300); Potassium 4.3 mEq/L (3.5-5.1); Sodium 139 mEq/L (136-145); eGFR For African Americans > 60 (> 60); eGFR For Non-African Americans 60 (> 60)
[2019-03-21] MEDS: *HR* HYDROcodone/Acet 5/325 mg TABLET PO PRN ×2 (09:14→21:29)
[2019-03-21] MEDS: Bumetanide 1 MG TABLET PO SCH (09:15)
[2019-03-21] MEDS: Cholecalciferol (D-3) 1,000 UNIT (25MCG) TABLET PO SCH (09:15)
[2019-03-21] MEDS: Cyanocobalamin (B-12) 1,000 MCG TABLET PO SCH (09:15)
[2019-03-21] MEDS: Albuterol 2.5 MG/3 ML NEBULIZER IH PRN ×2 (09:28→21:41)
[2019-03-21] MEDS: Potassium Chloride Elixir 20 MEQ/15 ML UDC PO SCH (09:29)
[2019-03-21] MEDS: Budesonide/Formoterol 160/4.5 1 PUFF INH IH SCH ×2 (09:29→21:41)
[2019-03-21] MEDS: Fluticasone Propionate Nasal 50 MCG/SPRAY BOTTLE NS SCH (09:31)
[2019-03-21] MEDS: Colestipol Hcl [Colestid] 1 GM PO SCH ×2 (09:45→22:25)
[2019-03-21] MEDS: Azelastine 0.1% Nasal Spray 30 ML BOTTLE NS SCH (17:15)
[2019-03-21] MEDS: Melatonin 3 MG TABLET PO SCH (21:29)
[2019-03-22] MEDS: Acetaminophen 325 MG TABLET PO SCH ×4 (01:07→17:15)
[2019-03-22] MEDS: Levothyroxine 25 MCG TABLET PO SCH (05:38)
[2019-03-22] MEDS: *HR* Enoxaparin 40 MG/0.4 ML SYRINGE SQ SCH (05:38)
[2019-03-22] MEDS: *HR* HYDROcodone/Acet 5/325 mg TABLET PO PRN ×2 (05:40→22:39)
[2019-03-22] MEDS: Cyanocobalamin (B-12) 1,000 MCG TABLET PO SCH (09:18)
[2019-03-22] MEDS: Potassium Chloride Elixir 20 MEQ/15 ML UDC PO SCH (09:19)
[2019-03-22] MEDS: Bumetanide 1 MG TABLET PO SCH (09:19)
[2019-03-22] MEDS: Cholecalciferol (D-3) 1,000 UNIT (25MCG) TABLET PO SCH (09:19)
[2019-03-22] MEDS: Colestipol Hcl [Colestid] 1 GM PO SCH ×2 (09:20→20:23)
[2019-03-22] MEDS: Fluticasone Propionate Nasal 50 MCG/SPRAY BOTTLE NS SCH (09:25)
[2019-03-22] MEDS: Budesonide/Formoterol 160/4.5 1 PUFF INH IH SCH ×2 (09:28→22:13)
[2019-03-22] MEDS: Albuterol 2.5 MG/3 ML NEBULIZER IH PRN ×2 (09:28→22:13)
[2019-03-22] MEDS: MOM Conc 10 ML UD.LIQ PO SCH (09:29)
[2019-03-22] MEDS: Azelastine 0.1% Nasal Spray 30 ML BOTTLE NS SCH (17:14)
--- NOTE | 2019-03-22 17:29 | Internal Med Progress Note ---
Date of Encounter: 03/22/19 Time of Encounter: 17:15 - Assessment and plan (1) Pubic ramus fracture Current Visit: No Status: Acute Assessment and plan: March 16. Continue scheduled and prn analgesics with PT/OT. March 18. CT scan will be ordered to further evaluate worsening pain March 20. Continue PT/OT and present analgesics. March 22. Begin NWB status 2 weeks with ROM to left leg. Continue analgesics. Qualifiers: Encounter type: initial encounter Fracture type: closed Laterality: right Qualified Code(s): S32.591A - Other specified fracture of right pubis, initial encounter for closed fracture (2) Hypertension Current Visit: No Status: Chronic Assessment and plan: March 16. Continue Lasix. March 18. Change from Lasix to Bumex to lessen edema. Qualifiers: Hypertension type: essential hypertension Qualified Code(s): I10 - Essential (primary) hypertension (3) Hypothyroidism Current Visit: No Status: Chronic Assessment and plan: March 16. TSH was normal at 1.139. Continue present dose Synthroid. Qualifiers: Hypothyroidism type: unspecified Qualified Code(s): E03.9 - Hypothyroidism, unspecified (4) Anemia Current Visit: No Status: Acute Assessment and plan: March 16. Anemia testing showed iron 60, transferrin saturation 17%, transferrin 246, ferritin 29, B12 247, and folate 13.6. She received a B12 injection IM and started oral B12 supplement. March 18. Recheck CBC today. March 20. Hemoglobin improved to 10.6 on March 18. Recheck labs in a.m. March 22. Hemoglobin decrease slightly to 10.0 yesterday. Continue to monitor periodically. Qualifiers: Anemia type: unspecified type Qualified Code(s): D64.9 - Anemia, unspecified (5) Prediabetes Current Visit: Yes Status: Acute Assessment and plan: March 16. Hemoglobin A1c was 6.3%. (6) Edema Current Visit: Yes Status: Acute Assessment and plan: March 18. BN peptide will be checked. Change from Lasix to Bumex. March 20. Recheck labs in a.m. Continue Bumex Qualifiers: Edema type: unspecified Qualified Code(s): R60.9 - Edema, unspecified - Subjective Interval history: March 16. She was hospitalized in acute-care March 10- after presenting w ith a fall resulting in right superior and inferior pubic ramus fractures. She was given scheduled and prn analgesics. PT/OT evaluation with ongoing intervention was done. She was discharged to swing bed for ongoing therapy prior to return to independent living. She has no new complaints today. March 18. She reports increased pain in her right hip/pelvic area. She has no pain in her left hip. She has also noticed worsening edema in her lower legs. She denies dyspnea. March 20. She has no new complaints. She states the pain has not worsened and thinks it may be slightly lessened. March 22. She was seen by orthopedic staff today who changed her to NWB status 2 weeks with ROM to the left leg. She states she has slight pain at rest while sitting in a chair. - Constitutional Vitals: Temp Pulse Resp BP Pulse Ox 97.8 F 86 16 127/75 98 03/22/19 07:02 03/22/19 07:02 03/22/19 09:28 03/22/19 07:02 03/22/19 09:28 Exam: She appears in no acute distress. Her affect is overall cheerful. I reviewed her medications and lab results. Internal Medicine: Result - Labs CBC & Chem 7: 03/21/19 05:32 03/21/19 05:32 Consult Discharge Plan - Plan Referrals: Radha Machuca MD [Primary Care Provider] - 1 week
[2019-03-22] MEDS: Melatonin 3 MG TABLET PO SCH (20:27)
[2019-03-23] MEDS: Acetaminophen 325 MG TABLET PO SCH ×4 (00:28→17:03)
[2019-03-23] MEDS: Levothyroxine 25 MCG TABLET PO SCH (05:43)
[2019-03-23] MEDS: *HR* Enoxaparin 40 MG/0.4 ML SYRINGE SQ SCH (05:44)
[2019-03-23] MEDS: Bumetanide 1 MG TABLET PO SCH (09:11)
[2019-03-23] MEDS: Colestipol Hcl [Colestid] 1 GM PO SCH ×2 (09:11→21:41)
[2019-03-23] MEDS: Cholecalciferol (D-3) 1,000 UNIT (25MCG) TABLET PO SCH (09:11)
[2019-03-23] MEDS: Cyanocobalamin (B-12) 1,000 MCG TABLET PO SCH (09:11)
[2019-03-23] MEDS: Potassium Chloride Elixir 20 MEQ/15 ML UDC PO SCH (09:12)
[2019-03-23] MEDS: *HR* HYDROcodone/Acet 5/325 mg TABLET PO PRN ×2 (09:18→21:41)
[2019-03-23] MEDS: Fluticasone Propionate Nasal 50 MCG/SPRAY BOTTLE NS SCH (09:18)
[2019-03-23] MEDS: Albuterol 2.5 MG/3 ML NEBULIZER IH PRN ×2 (10:27→21:52)
[2019-03-23] MEDS: Budesonide/Formoterol 160/4.5 1 PUFF INH IH SCH ×2 (10:29→21:52)
[2019-03-23] MEDS: Azelastine 0.1% Nasal Spray 30 ML BOTTLE NS SCH (17:03)
[2019-03-23] MEDS: Melatonin 3 MG TABLET PO SCH (21:41)
[2019-03-24] MEDS: *HR* Enoxaparin 40 MG/0.4 ML SYRINGE SQ SCH (05:35)
[2019-03-24] MEDS: Levothyroxine 25 MCG TABLET PO SCH (05:35)
[2019-03-24] MEDS: Acetaminophen 325 MG TABLET PO SCH ×5 (05:35→22:40)
[2019-03-24] MEDS: Potassium Chloride Elixir 20 MEQ/15 ML UDC PO SCH (08:47)
[2019-03-24] MEDS: Cyanocobalamin (B-12) 1,000 MCG TABLET PO SCH (08:49)
[2019-03-24] MEDS: Cholecalciferol (D-3) 1,000 UNIT (25MCG) TABLET PO SCH (08:49)
[2019-03-24] MEDS: Bumetanide 1 MG TABLET PO SCH (08:49)
[2019-03-24] MEDS: Fluticasone Propionate Nasal 50 MCG/SPRAY BOTTLE NS SCH (08:54)
[2019-03-24] MEDS: *HR* HYDROcodone/Acet 5/325 mg TABLET PO PRN ×3 (08:54→22:40)
[2019-03-24] MEDS: Colestipol Hcl [Colestid] 1 GM PO SCH ×2 (08:54→22:41)
[2019-03-24] MEDS: Albuterol 2.5 MG/3 ML NEBULIZER IH PRN ×2 (09:38→22:33)
[2019-03-24] MEDS: Budesonide/Formoterol 160/4.5 1 PUFF INH IH SCH ×2 (09:39→22:33)
[2019-03-24] MEDS: MOM Conc 10 ML UD.LIQ PO SCH (11:29)
--- NOTE | 2019-03-24 15:26 | Internal Med Progress Note ---
Date of Encounter: 03/24/19 Time of Encounter: 15:20 - Assessment and plan (1) Pubic ramus fracture Current Visit: No Status: Acute Assessment and plan: March 16. Continue scheduled and prn analgesics with PT/OT. March 18. CT scan will be ordered to further evaluate worsening pain March 20. Continue PT/OT and present analgesics. March 22. Begin NWB status 2 weeks with ROM to left leg. Continue analgesics. Qualifiers: Encounter type: initial encounter Fracture type: closed Laterality: right Qualified Code(s): S32.591A - Other specified fracture of right pubis, initial encounter for closed fracture (2) Hypertension Current Visit: No Status: Chronic Assessment and plan: March 16. Continue Lasix. March 18. Change from Lasix to Bumex to lessen edema. Qualifiers: Hypertension type: essential hypertension Qualified Code(s): I10 - Essential (primary) hypertension (3) Hypothyroidism Current Visit: No Status: Chronic Assessment and plan: March 16. TSH was normal at 1.139. Continue present dose Synthroid. Qualifiers: Hypothyroidism type: unspecified Qualified Code(s): E03.9 - Hypothyroidism, unspecified (4) Anemia Current Visit: No Status: Acute Assessment and plan: March 16. Anemia testing showed iron 60, transferrin saturation 17%, transferrin 246, ferritin 29, B12 247, and folate 13.6. She received a B12 injection IM and started oral B12 supplement. March 18. Recheck CBC today. March 20. Hemoglobin improved to 10.6 on March 18. Recheck labs in a.m. March 22. Hemoglobin decrease slightly to 10.0 yesterday. Continue to monitor periodically. March 24. Recheck labs in a.m. Qualifiers: Anemia type: unspecified type Qualified Code(s): D64.9 - Anemia, unspecified (5) Prediabetes Current Visit: Yes Status: Acute Assessment and plan: March 16. Hemoglobin A1c was 6.3%. (6) Edema Current Visit: Yes Status: Acute Assessment and plan: March 18. BN peptide will be checked. Change from Lasix to Bumex. March 20. Recheck labs in a.m. Continue Bumex Qualifiers: Edema type: unspecified Qualified Code(s): R60.9 - Edema, unspecified - Subjective Interval history: March 16. She was hospitalized in acute-care March 10 after presenting with a fall resulting in right superior and inferior pubic ramus fractures. She was given scheduled and prn analgesics. PT/OT evaluation with ongoing intervention was done. She was discharged to swing bed for ongoing therapy prior to return to independent living. She has no new complaints today. March 18. She reports increased pain in her right hip/pelvic area. She has no pain in her left hip. She has also noticed worsening edema in her lower legs. She denies dyspnea. March 20. She has no new complaints. She states the pain has not worsened and thinks it may be slightly lessened. March 22. She was seen by orthopedic staff today who changed her to NWB status 2 weeks with ROM to the left leg. She states she has slight pain at rest while sitting in a chair. March 24. She has no new complaints. - Constitutional Vitals: Temp Pulse Resp BP Pulse Ox 98.6 F 70 18 119/66 92 03/24/19 07:16 03/24/19 07:16 03/24/19 09:39 03/24/19 07:16 03/24/19 09:39 Exam: She is resting comfortably in bed and appears in no acute distress. She has trace edema of the left lower leg and 0-trace edema of the right lower leg. Her affect is bright and cheerful. I reviewed her medications and lab results. Internal Medicine: Result - Labs CBC & Chem 7: 03/21/19 05:32 03/21/19 05:32 Consult Discharge Plan - Plan Referrals: Radha Machuca MD [Primary Care Provider] - 1 week
[2019-03-24] MEDS: Azelastine 0.1% Nasal Spray 30 ML BOTTLE NS SCH (17:58)
[2019-03-24] MEDS: Melatonin 3 MG TABLET PO SCH (22:40)
[2019-03-25] MEDS: Acetaminophen 325 MG TABLET PO SCH ×2 (05:48→11:22)
[2019-03-25] MEDS: *HR* Enoxaparin 40 MG/0.4 ML SYRINGE SQ SCH (05:48)
[2019-03-25] MEDS: Levothyroxine 25 MCG TABLET PO SCH (05:48)
[2019-03-25 07:08] VITALS: BP 128/78
[2019-03-25 07:36] LABS: Basophils % 0.4 %; Eosinophils # 0.1 K/mcL (0.0-0.6); Eosinophils % 1.5 %; Hematocrit 29.6 % (35.3-44.9); Hemoglobin 9.5 g/dL (11.5-15.4); Immature Granulocytes % 1.3 % (0-4); Lymphocytes % 13.1 %; Mean Corpuscular HGB Conc 32.1 g/dL (31.6-35.5); Mean Corpuscular Hemoglobin 30.4 pg (28.0-33.3); Mean Corpuscular Volume 94.9 fL (83.0-100.0); Mean Platelet Volume 9.4 fL (9.4-12.4); Monocytes # 0.4 K/mcL (0.0-1.3); Monocytes % 5.4 %; Neutrophils # 5.8 K/mcL (1.6-8.9); Platelet Count 175 K/mcL (140-400); Red Blood Count 3.12 M/mcL (3.82-4.97); Segmented Neutrophils % 78.3 %; White Blood Count 7.4 K/mcL (4.3-11.1)
[2019-03-25 07:55] LABS: BUN/Creatinine Ratio 31 (6-26); Blood Urea Nitrogen 30 mg/dL (8-23); Calcium 8.4 mg/dL (8.6-10.3); Carbon Dioxide 32 mEq/L (23-29); Chloride 103 mEq/L (98-107); Glucose 103 mg/dL (70-105); Osmolality,Calculated 294 (280-300); Potassium 4.3 mEq/L (3.5-5.1); Sodium 139 mEq/L (136-145); eGFR For African Americans > 60 (> 60); eGFR For Non-African Americans 56 (> 60)
[2019-03-25] MEDS: Potassium Chloride Elixir 20 MEQ/15 ML UDC PO SCH (08:16)
[2019-03-25] MEDS: Cholecalciferol (D-3) 1,000 UNIT (25MCG) TABLET PO SCH (08:17)
[2019-03-25] MEDS: Bumetanide 1 MG TABLET PO SCH (08:17)
[2019-03-25] MEDS: Fluticasone Propionate Nasal 50 MCG/SPRAY BOTTLE NS SCH (08:17)
[2019-03-25] MEDS: Colestipol Hcl [Colestid] 1 GM PO SCH (08:17)
[2019-03-25] MEDS: Cyanocobalamin (B-12) 1,000 MCG TABLET PO SCH (08:17)
[2019-03-25] MEDS: Budesonide/Formoterol 160/4.5 1 PUFF INH IH SCH (10:27)
[2019-03-25] MEDS: Albuterol 2.5 MG/3 ML NEBULIZER IH PRN (10:28)
--- NOTE | 2019-03-25 15:12 | Discharge Summary ---
Date of Encounter: 03/25/19 Time of Encounter: 15:00 - Discharge Diagnosis (1) Pubic ramus fracture Priority: Primary Status: Acute Qualifiers: Encounter type: initial encounter Fracture type: closed Laterality: right Qualified Code(s): S32.591A - Other specified fracture of right pubis, initial encounter for closed fracture (2) Fracture of sacrum Priority: Secondary Status: Acute Qualifiers: Encounter type: initial encounter Zone of sacrum fracture: unspecified portion of sacrum Fracture type: closed Qualified Code(s): S32.10XA - Unspecified fracture of sacrum, initial encounter for closed fracture (3) Hypertension Priority: Secondary Status: Chronic Qualifiers: Hypertension type: essential hypertension Qualified Code(s): I10 - Essential (primary) hypertension (4) Hypothyroidism Priority: Secondary Status: Chronic Qualifiers: Hypothyroidism type: unspecified Qualified Code(s): E03.9 - Hypothyroidism, unspecified (5) Anemia Priority: Secondary Status: Acute Qualifiers: Anemia type: unspecified type Qualified Code(s): D64.9 - Anemia, unspecified (6) Prediabetes Priority: Secondary Status: Chronic (7) Edema Priority: Secondary Status: Acute Qualifiers: Edema type: unspecified Qualified Code(s): R60.9 - Edema, unspecified Hospital course: Ms. Vance is a 83 year old female who was hospitalized in acute-care March 10- after presenting with a fall resulting in right superior and inferior pubic ramus fractures and sacrum fracture. She was given scheduled and prn analgesics. PT/OT evaluation with ongoing intervention was done. She was discharged to swing bed for ongoing therapy prior to return to independent living. She was given scheduled and prn analgesics. Physical therapy and occupational therapy intervention was ordered. She had no improvement in pain so repeat CT of pelvis was done March 18. There was redemonstration of right superior and inferior pubic ramus fractures with mildly increased displacement of the right inferior pubic ramus fracture compared to previous one 03/10/2019. There was nondisplaced right sacral alar fracture again identified. She was seen by the orthopedist who recommended she be nonweightbearing for 2 weeks. She was ordered to have PROM to the left leg. Anemia testing showed iron 60, transferrin saturation 17%, transferrin 246, ferritin 29, B12 247, and folate 13.6. She received a B12 injection IM and started oral B12 supplement. She will also be started on oral ferrous sulfate with ascorbic acid. TSH returned normal at 1.139. She will continue present dose Synthroid. She requested transfer to a SNF closer to her home in [facility]. Arrangements were complete 03/25/2019 for transfer to [facility] in [facility]. She will follow with her PCP Dr. Radha Machuca within 1 week. She will follow with a [facility] orthopedist. - Time Spent with Patient Total time spent providing and/or coordinating discharge services: - Discharge Medications Prescriptions: New MOM Conc [MILK OF MAGNESIA conc] 10 ml PO Q48H ud.liq HYDROcodone/Acet 5/325 mg [[place] 5-325 mg] 1 tab PO Q4H PRN 7 Days #42 tablet PRN Reason: Pain Bumetanide [Bumex] 1 mg PO DAILY tablet Continued Albuterol Neb [Proventil Neb] 2.5 mg IH PRN PRN PRN Reason: Shortness Of Breath Atorvastatin [Lipitor] 20 mg PO HS Budesonide/Formoterol 160/4.5 [Symbicort 160/4.5] 2 puff IH BIDR Cholecalciferol (Vitamin D3) [Vitamin D3] 1,000 unit PO DAILY Colestipol HCl [Colestid] 1 gm PO BID HYDROcodone/Acet 5/325 mg [[place] 5-325 mg] 1 tab PO BID PRN PRN Reason: Pain Lansoprazole [Prevacid] 30 mg PO DAILY Levothyroxine [Synthroid] 50 mcg PO DAILY Montelukast Sodium [Singulair] 10 mg PO DAILY Potassium Chloride [Klor-Con 10] 50 meq PO DAILY Sertraline [Zoloft] 75 mg PO DAILY Fluticasone Propionate Nasal [Flonase] 50 mcg NS QAM Azelastine 0.1% Nasal [place] [Astelin] 2 spray NS QPM Acetaminophen [Tylenol] 650 mg PO Q6HR tablet Albuterol Neb [Proventil Neb] 2.5 mg IH Q4H PRN inhsol PRN Reason: Shortness Of Breath Cyanocobalamin (B-12) [Vitamin B12] 1,000 mcg PO DAILY tablet Enoxaparin [Lovenox] 40 mg SQ 0600 syringe Melatonin 6 mg PO HS tablet Discontinued Furosemide [Lasix] 40 mg PO DAILY Home Medications: Albuterol Neb [Proventil Neb] 2.5 mg IH PRN PRN 03/10/19 [History] Atorvastatin [Lipitor] 20 mg PO HS 03/10/19 [History] Azelastine 0.1% Nasal [place] [Astelin] 2 spray NS QPM 03/10/19 [History] Budesonide/Formoterol 160/4.5 [Symbicort 160/4.5] 2 puff IH BIDR 03/10/19 [History] Cholecalciferol (Vitamin D3) [Vitamin D3] 1,000 unit PO DAILY 03/10/19 [History] Colestipol HCl [Colestid] 1 gm PO BID 03/10/19 [History] Fluticasone Propionate Nasal [Flonase] 50 mcg NS QAM 03/10/19 [History] HYDROcodone/Acet 5/325 mg [[place] 5-325 mg] 1 tab PO BID PRN 03/10/19 [History] Lansoprazole [Prevacid] 30 mg PO DAILY 03/10/19 [History] Levothyroxine [Synthroid] 50 mcg PO DAILY 03/10/19 [History] Montelukast Sodium [Singulair] 10 mg PO DAILY 03/10/19 [History] Potassium Chloride [Klor-Con 10] 50 meq PO DAILY 03/10/19 [History] Sertraline [Zoloft] 75 mg PO DAILY 03/10/19 [History] Acetaminophen [Tylenol] 650 mg PO Q6HR tablet 03/14/19 [Rx] Albuterol Neb [Proventil Neb] 2.5 mg IH Q4H PRN inhsol 03/14/19 [Rx] Cyanocobalamin (B-12) [Vitamin B12] 1,000 mcg PO DAILY tablet 03/14/19 [Rx] Enoxaparin [Lovenox] 40 mg SQ 0600 syringe 03/14/19 [Rx] Melatonin 6 mg PO HS tablet 03/14/19 [Rx] Bumetanide [Bumex] 1 mg PO DAILY tablet 03/25/19 [Rx] HYDROcodone/Acet 5/325 mg [[place] 5-325 mg] 1 tab PO Q4H PRN 7 Days #42 tablet 03/25/19 [Rx] MOM Conc [MILK OF MAGNESIA conc] 10 ml PO Q48H ud.liq 03/25/19 [Rx] Allergies/Adverse Reactions: Allergy/AdvReac Type Severity Reaction Status Date / Time metoclopramide [From Reglan] Allergy Hives Verified 03/10/19 17:25 Penicillins [PCN] Allergy Hives Verified 03/10/19 17:25 Sulfa (Sulfonamide Allergy Hives Verified 03/10/19 17:26 Antibiotics) codeine AdvReac See Verified 03/10/19 17:25 Comments Date of admission: 03/14/19 11:07 Primary care physician: Radha Machuca MD Consults: 03/14/19 11:02 Consult to Occupational Therapy [CONS] Routine Comment: Evaluate, develop and implement POC Reason for Consult: Evaluate, develop and implement POC Does patient have active BEDREST order?: No Is patient medically & hemodynamically stable?: Yes Patient assessed for mobility or mobilized this visit?: Yes Consult to Physical Therapy [CONS] Routine Comment: Evaluate, develop and implement POC Reason for Consult: Evaluate, develop and implement POC Does patient have active BEDREST order?: No Is patient medically & hemodynamically stable?: Yes Patient assessed for mobility or mobilized this visit?: Yes - Constitutional Vitals: Temp Pulse Resp BP Pulse Ox 97.6 F 61 16 128/78 97 03/25/19 07:07 03/25/19 07:07 03/25/19 10:38 03/25/19 07:07 03/25/19 10:38 - Patient Status Disposition: Transfer SNF - Discharge Instructions - Diet and Activity Activity: as per physical therapy Diet: regular diet
--- NOTE | 2019-03-25 15:24 | Physician Discharge Referral ---
[facility] Referral Info Transfer To: [facility] Provider in Charge: Hiren Provider in Charge after Transfer: PCP Renata) - Diagnosis (1) Pubic ramus fracture Priority: Primary Status: Acute (2) Fracture of sacrum Priority: Secondary Status: Acute (3) Hypertension Priority: Secondary Status: Chronic (4) Hypothyroidism Priority: Secondary Status: Chronic (5) Anemia Priority: Secondary Status: Acute (6) Prediabetes Priority: Secondary Status: Chronic (7) Edema Priority: Secondary Status: Acute - Transfer Medications Prescriptions: Ferrous Sulfate 325 mg PO DAILY 365 Days tablet HYDROcodone/Acet 5/325 mg [[place] 5-325 mg] 1 tab PO Q4H PRN 7 Days #42 tablet PRN Reason: Pain Ascorbic Acid [Vitamin C] 500 mg PO DAILY 365 Days tablet.er Home Medications: Albuterol Neb [Proventil Neb] 2.5 mg IH PRN PRN 03/10/19 [History] Atorvastatin [Lipitor] 20 mg PO HS 03/10/19 [History] Azelastine 0.1% Nasal [place] [Astelin] 2 spray NS QPM 03/10/19 [History] Budesonide/Formoterol 160/4.5 [Symbicort 160/4.5] 2 puff IH BIDR 03/10/19 [History] Cholecalciferol (Vitamin D3) [Vitamin D3] 1,000 unit PO DAILY 03/10/19 [History] Colestipol HCl [Colestid] 1 gm PO BID 03/10/19 [History] Fluticasone Propionate Nasal [Flonase] 50 mcg NS QAM 03/10/19 [History] HYDROcodone/Acet 5/325 mg [[place] 5-325 mg] 1 tab PO BID PRN 03/10/19 [History] Lansoprazole [Prevacid] 30 mg PO DAILY 03/10/19 [History] Levothyroxine [Synthroid] 50 mcg PO DAILY 03/10/19 [History] Montelukast Sodium [Singulair] 10 mg PO DAILY 03/10/19 [History] Potassium Chloride [Klor-Con 10] 50 meq PO DAILY 03/10/19 [History] Sertraline [Zoloft] 75 mg PO DAILY 03/10/19 [History] Acetaminophen [Tylenol] 650 mg PO Q6HR tablet 03/14/19 [Rx] Albuterol Neb [Proventil Neb] 2.5 mg IH Q4H PRN inhsol 03/14/19 [Rx] Cyanocobalamin (B-12) [Vitamin B12] 1,000 mcg PO DAILY tablet 03/14/19 [Rx] Enoxaparin [Lovenox] 40 mg SQ 0600 syringe 03/14/19 [Rx] Melatonin 6 mg PO HS tablet 03/14/19 [Rx] Ascorbic Acid [Vitamin C] 500 mg PO DAILY 365 Days tablet.er 03/25/19 [Rx] Bumetanide [Bumex] 1 mg PO DAILY tablet 03/25/19 [Rx] Ferrous Sulfate 325 mg PO DAILY 365 Days tablet 03/25/19 [Rx] HYDROcodone/Acet 5/325 mg [[place] 5-325 mg] 1 tab PO Q4H PRN 7 Days #42 tablet 03/25/19 [Rx] MOM Conc [MILK OF MAGNESIA conc] 10 ml PO Q48H ud.liq 03/25/19 [Rx] Allergies/Adverse Reactions: Allergy/AdvReac Type Severity Reaction Status Date / Time metoclopramide [From Reglan] Allergy Hives Verified 03/10/19 17:25 Penicillins [PCN] Allergy Hives Verified 03/10/19 17:25 Sulfa (Sulfonamide Allergy Hives Verified 03/10/19 17:26 Antibiotics) codeine AdvReac See Verified 03/10/19 17:25 Comments - Respiratory Orders Oxygen / L per min (2 L/m by nasal cannula as needed to keep sat greater than 90%) Smoking Cessation: Smoking cessation has been advised. For more information, call the [place] Tobacco Quit Line at 5-006-YEIA-NOW. - Lab Orders Lab Orders: Other (include drug levels w/frequency) (CBC with differential, BMP, and BN peptide in 3 days) - Advance Directives Code Status: Full Code - Mobility Orders Other (NWB through 04/05/2019.) - Rehabiliation Orders Rehab Orders: ROM Exercises (PROM to left leg through 04/05/2019.), Evaluation for Physical Therapy, Evaluation for Occupational Therapy - Diet Orders Regular CERTIFICATION: I certify that the transfer of the above named patient to an Extended Care Facility is necessary for the continuing treatment of the diagnosis listed. The above information is true and accurate reflection of patient's current condition. Confidential - Redisclosure prohibited without a patient's written consent.
== END 2019-03-25 17:15 | DRG 561 ==
LOC: INPPIK 11:07
PROVIDERS: ADMIT Internal Medicine; ATTEND Internal Medicine